=== PATIENT | male | born 1990 | race American Indian/Alaskan Native ===

== ENCOUNTER 2016-12-10 09:44 | Emergency (ER) | payer MEDICAID, OTHER ==
[2016-12-10 09:59] VITALS: BP 140/84
[2016-12-10] MEDS ORDERED: methylPREDNISolone Sodium Succinate 125 MG/2 ML SDV IVPUSH ONE (10:08)
[2016-12-10] MEDS ORDERED: Sodium Chloride 0.9% 10 ML Syringe FLUSH PRN (10:08)
[2016-12-10] MEDS ORDERED: Albuterol/Ipratropium 3.0-0.5 MG/3 ML Neb Soln NEB ONE ×2 (10:08→11:01)
[2016-12-10] MEDS ORDERED: Famotidine 20 MG/2 ML SDV IVPUSH ONE (10:09)
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
== END 2016-12-10 11:48 | disposition home or self-care (01) ==
LOC: JD.ED 09:44
DX: R06.2 Wheezing (principal); T78.49XA Other allergy, initial encounter; F17.210 Nicotine dependence, cigarettes, uncomplicated; Z90.49 Acquired absence of other specified parts of digestive tract
CPT/HCPCS: 94640; 94664; 96374; 96375; 99283; J2930; J7050